=== PATIENT | male | born 1990 | race Hispanic/Latino ===

== ENCOUNTER 2018-06-06 09:46 | Emergency (ER) | payer OTHER | END 2018-06-06 11:48 | disposition home or self-care (01) | LOC: M ED 09:46 | DX: G89.29 Other chronic pain (principal); M54.5 Low back pain; F17.210 Nicotine dependence, cigarettes, uncomplicated | CPT/HCPCS: 99283 ==

== ENCOUNTER 2018-06-30 07:07 | Emergency (ER) | payer OTHER ==
[2018-06-30] MEDS: KETOROLAC 60 MG/2 ML VIAL (J1885) IM (07:55)
== END 2018-06-30 07:56 | disposition home or self-care (01) ==
LOC: M ED 07:07
DX: M54.5 Low back pain (principal); F17.210 Nicotine dependence, cigarettes, uncomplicated
CPT/HCPCS: J1885